=== PATIENT | female | born 1965 | race African-American/Black ===

== ENCOUNTER 2019-11-21 12:04 | Emergency (ER) | payer SELFPAY ==
[~2019-11-21] VITALS: Ht 165.1 cm; Wt 59.0 kg
[2019-11-21 12:16] VITALS: BP 136/68
--- NOTE | 2019-11-21 12:32 | PHYS DOC ---
Past Medical History Past Medical History: Cancer, Hypertension, Hypothyroid Additional Past Medical Histor: Thyroid CA Past Surgical History: Other Additional Past Surgical Histo: Thyroidectomy,Arthroscopic R)knee. Smoking Status: Never Smoker Alcohol Use: None Drug Use: None Adult General Chief Complaint Chief Complaint: MECHANICAL FALL [facility] HPI Patient is a 54 year old female who presents with a fall on Friday around 5:00 PM. The patient states that she slipped on water. She states that she slipped fell and is unsure what she hit his she does not remember what happened. The patient's been having a headache, neck pain, and thoracic lumbar back pain since the incident. The patient also been having some minor left hand and left knee pain. The patient rates her pain as 6 out of 10 in severity and sharp. Complete ROS were reviewed and found to be within normal limits, except as documented in the [facility] Allergies Allergies Allergies Coded Allergies Type Severity Reaction Last Updated Verified No Known Drug Allergies 09/05/14 No Physical Exam Physical Exam Constitutional: Well developed, well nourished, no acute distress, non-toxic appearance. [] HENT: Normocephalic, atraumatic, bilateral external ears normal, oropharynx moist, no oral exudates, nose normal. [] Neck: Reduced range of motion, cervical spine tenderness Cardiovascular:Heart rate regular rhythm, no murmur [] Lungs & Thorax: Bilateral breath sounds clear to auscultation [] Abdomen: Bowel sounds normal, soft, no tenderness, no masses, no pulsatile masses. [] Back: T, L point tenderness, no stepoffs. Extremities: No tenderness on palpation to L hand, no cyanosis, no clubbing, ROM intact, no edema. Mild tenderness on palpation to L knee, Full ROM, able to bear weight without pain. Neurologic: Alert and oriented X 3, normal motor function, normal sensory function, no focal deficits noted. [] Psychologic: Affect normal, judgement normal, mood normal. [] Current Patient Data Vital Signs Vital Signs Date Time Temp Pulse Resp B/P (MAP) Pulse Ox O2 Delivery O2 Flow Rate FiO2 11/21/19 12:16 98.6 72 15 136/68 (90) 99 Room Air 98.6 EKG EKG [] Radiology/Procedures Radiology/Procedures [][facility] [address] [place] [address] IMAGING REPORT Signed PATIENT: ISABELLE LONGORIA ACCOUNT: [id number] : 1965 LOCATION: ER AGE: 54 SEX: F EXAM STATUS: REG ER ORD. PHYSICIAN: SO DOWD APRN REASON: fall on friday, headache, neck pain, diffuse back pain PROCEDURE: CT HEAD AND CERVICAL SPINE WO CT head without contrast. CT cervical spine without contrast. CT thoracic spine without contrast. CT lumbar spine without contrast. PQRS statement: CT scans at this facility use dose reduction including either automated exposure control, iterative reconstructions, and /or weight based radiation dosing via mA and kV modification when appropriate to reduce radiation dose to as low as reasonably achievable. HISTORY: Fall, headache, neck pain, diffuse back pain. CT head findings: No intracranial hemorrhage, mass, hydrocephalus, extra-axial fluid collections or infarction. No acute ischemic change. Imaged orbits, mastoids and bones are unremarkable. IMPRESSION: Normal exam. CT cervical spine findings: Craniocervical junction intact. Cervical vertebral body height and alignment intact. No fracture of the cervical spine. There are soft disc bulges and protrusions throughout the cervical spine contributing to spinal canal stenosis which could be moderate to severe at some levels particularly at C3-C4, C4-C5 and C5-C6. Imaged lung apices and paraspinal tissues are unremarkable. IMPRESSION: No acute osseous injury of the cervical spine. Cervical disc disease as described above. CT thoracic spine findings: Thoracic vertebral body height and alignment intact. No fracture. No spondylolysis defect. Thoracic intervertebral disc height loss and probable shallow disc bulges as well as mild endplate spurring throughout the mid and upper thoracic spine. Paraspinal tissues are unremarkable. Left adrenal 1.2 cm nodule density of 3 units consistent with an adenoma. IMPRESSION: No acute osseous injury of the thoracic spine. Thoracic degenerative disc disease. CT lumbar spine findings: Lumbar vertebral body height and alignment intact. No fracture. No spondylolysis defect. Paraspinal tissues are unremarkable. There are disc bulges and facet spurring at the lower lumbar spine contributing to moderate to severe spinal canal and neural foraminal stenoses at L4-5, and possible mild spinal canal and neural foraminal stenoses at L5-S1. IMPRESSION: No acute osseous injury lumbar spine. Lumbar disc disease as described above. Exposure: One or more of the following individualized dose reduction techniques were utilized for this examination: 1. Automated exposure control 2. Adjustment of the mA and/or kV according to patient size 3. Use of iterative reconstruction technique Electronically signed by: Wicho Franklin MD (11/21/2019 1:18 PM) [id number] DICTATED and SIGNED BY: WICHO FRANKLIN MD DATE: 11/21/19 1318 Course & Med Decision Making Course & Med Decision Making Pertinent Labs and Imaging studies reviewed. (See chart for details) Due to mechanism of fall with +loc will get CT head, c, t, l spine. Imaging is unremarkable for acute changes. Dragon Disclaimer Dragon Disclaimer This electronic medical record was generated, in whole or in part, using a voice recognition dictation system. Departure Departure Impression: Primary Impression: Fall Disposition: 01 HOME, SELF-CARE Condition: STABLE Referrals: NO PCP (PCP) Patient Instructions: Fall Prevention and Home Safety Additional Instructions: Thank you for visiting [facility]. We appreciate you trusting us with your care. If any additional problems come up don't hesitate to return to visit us. Please follow up with your primary care provider so they can plan additional care if needed and know about the problem that you had. If symptoms worsen come back to the Emergency Department. Any concerning symptoms that start such as chest pain, shortness of air, weakness or numbness on one side of the body, running high fevers or any other concerning symptoms return to the ER. Problem Qualifiers Primary Impression: Fall Encounter type: initial encounter Qualified Codes: W19.XXXA - Unspecified fall, initial encounter SO DOWD APRN Nov 21, 2019 12:32
--- NOTE | 2019-11-21 13:21 | RAD ---
CT head without contrast. CT cervical spine without contrast. CT thoracic spine without contrast. CT lumbar spine without contrast. PQRS statement: CT scans at this facility use dose reduction including either automated exposure control, iterative reconstructions, and /or weight based radiation dosing via mA and kV modification when appropriate to reduce radiation dose to as low as reasonably achievable. HISTORY: Fall, headache, neck pain, diffuse back pain. CT head findings: No intracranial hemorrhage, mass, hydrocephalus, extra-axial fluid collections or infarction. No acute ischemic change. Imaged orbits, mastoids and bones are unremarkable. IMPRESSION: Normal exam. CT cervical spine findings: Craniocervical junction intact. Cervical vertebral body height and alignment intact. No fracture of the cervical spine. There are soft disc bulges and protrusions throughout the cervical spine contributing to spinal canal stenosis which could be moderate to severe at some levels particularly at C3-C4, C4-C5 and C5-C6. Imaged lung apices and paraspinal tissues are unremarkable. IMPRESSION: No acute osseous injury of the cervical spine. Cervical disc disease as described above. CT thoracic spine findings: Thoracic vertebral body height and alignment intact. No fracture. No spondylolysis defect. Thoracic intervertebral disc height loss and probable shallow disc bulges as well as mild endplate spurring throughout the mid and upper thoracic spine. Paraspinal tissues are unremarkable. Left adrenal 1.2 cm nodule density of 3 units consistent with an adenoma. IMPRESSION: No acute osseous injury of the thoracic spine. Thoracic degenerative disc disease. CT lumbar spine findings: Lumbar vertebral body height and alignment intact. No fracture. No spondylolysis defect. Paraspinal tissues are unremarkable. There are disc bulges and facet spurring at the lower lumbar spine contributing to moderate to severe spinal canal and neural foraminal stenoses at L4-5, and possible mild spinal canal and neural foraminal stenoses at L5-S1. IMPRESSION: No acute osseous injury lumbar spine. Lumbar disc disease as described above. Exposure: One or more of the following individualized dose reduction techniques were utilized for this examination: 1. Automated exposure control 2. Adjustment of the mA and/or kV according to patient size 3. Use of iterative reconstruction technique Electronically signed by: Wicho Franklin MD (11/21/2019 1:18 PM) [id number]
== END 2019-11-21 13:40 | disposition home or self-care (01) ==
LOC: ER 12:04
DX: G89.11 Acute pain due to trauma (principal); M54.6 Pain in thoracic spine; M54.2 Cervicalgia; R51 Headache; M25.562 Pain in left knee; Z85.850 Personal history of malignant neoplasm of thyroid; I10 Essential (primary) hypertension; E03.9 Hypothyroidism, unspecified; Z90.89 Acquired absence of other organs; Z98.890 Other specified postprocedural states; W01.0XXA Fall on same level from slipping, tripping and stumbling without subsequent striking against object, initial encounter; Y93.89 Activity, other specified; Y92.89 Other specified places as the place of occurrence of the external cause; Y99.8 Other external cause status
CPT/HCPCS: 70450; 72125; 72128; 72131; 99285